=== PATIENT | female | born 1950 | race Asian ===

== ENCOUNTER 2019-07-19 00:44 | Inpatient (IN) | payer MEDICAID, MEDICARE ==
[~2019-07-19] VITALS: Ht 167.6 cm; Wt 89.8 kg
--- NOTE | 2019-07-19 00:45 | NUR ---
PT BIB RA WITH A C/O LEFT SIDED CP, RT SHOULDER PAIN, BUE WEAKNESS/"FATIGUE", SOB, COUGH WITH CONGESTION. 18G IV IN LT HAND REGIONAL PROGRAM MANAGER. IV IS PATENT AND BENIGN.
[2019-07-19 01:03] LABS: BASOPHILS % (AUTO) 0.5 % (0.0-2.0); EOSINOPHILS % (AUTO) 3.9 % (0.0-6.0); HEMATOCRIT 28 % (33-45); LYMPHOCYTES # (AUTO) 1.3 /CMM (0.8-4.8); LYMPHOCYTES % (AUTO) 12.3 % (20.0-44.0); MEAN CORPUSCULAR HGB CONC 33 g/dl (31.0-36.0); MEAN CORPUSCULAR VOLUME 91 fL (82-100); MONOCYTES # (AUTO) 0.7 /CMM (0.1-1.30); NEUTROPHILS # (AUTO) 7.8 /CMM (1.8-8.9); NEUTROPHILS % (AUTO) 76.3 % (43.0-81.0); PLATELET COUNT (AUTO) 216 /CMM (150-450); RED BLOOD CELL COUNT(AUTO) 3.03 MIL/uL (4.0-5.2); WHITE BLOOD COUNT (AUTO) 10.2 K/uL (4.3-11.0)
[2019-07-19] MEDS ORDERED: DILTIAZEM HCL 25 MG IV ONE (01:06)
[2019-07-19] MEDS ORDERED: MORPHINE SULFATE INJ 4 MG/ML DISP.SYRIN ONE (01:08)
[2019-07-19 01:12] LABS: CALCIUM, SERUM 8.4 mg/dL (8.5-10.1); CARBON DIOXIDE 26 mmol/L (21-32); CHLORIDE 109 mmol/L (98-107); CREATININE 1.8 mg/dL (0.6-1.3); GLUCOSE 204 mg/dL (74-106); SODIUM SERUM 144 mmol/L (136-145); UREA NITROGEN, BLOOD 55 mg/dL (7-18)
[2019-07-19 01:23] LABS: ALANINE AMINOTRANSFERASE 40 U/L (12-78); ALBUMIN 2.9 g/dL (3.4-5.0); ALKALINE PHOSPHATASE 69 U/L (46-116); ASPARTATE AMINOTRANSFERASE 13 U/L (15-37); B-TYPE NATRIURETIC PEPTIDE 4104 PG/ML (0-125); BILIRUBIN,DIRECT 0.1 mg/dL (0.0-0.2); BILIRUBIN,TOTAL 0.2 mg/dL (0.2-1.0); TOTAL PROTEIN, SERUM 6.3 g/dL (6.4-8.2)
--- NOTE | 2019-07-19 01:25 | NUR ---
PT HAS A POLST IN THE CHART. DNR WITH SELECTIVE TREATMENT
[2019-07-19] MEDS ORDERED: DILTIAZEM HCL 50 MG IV IV ONE (01:30)
[2019-07-19] MEDS ORDERED: MORPHINE SULFATE INJ 10 MG/ML DISP.SYRIN IV ONE (01:30)
[2019-07-19] MEDS ORDERED: ATOR20TA PO (01:45)
[2019-07-19] MEDS ORDERED: CARV25TA2 PO (01:45)
[2019-07-19] MEDS ORDERED: HYDR100T27 PO (01:45)
[2019-07-19] MEDS ORDERED: UMEC1BLS IH (01:45)
[2019-07-19] MEDS ORDERED: PROHEAL PO (01:45)
[2019-07-19] MEDS ORDERED: ASPI-1152 PO (01:45)
[2019-07-19] MEDS ORDERED: ACET-73 PO ×2 (01:45)
[2019-07-19] MEDS ORDERED: BISA10SU61 RC (01:45)
[2019-07-19] MEDS ORDERED: IPRA3AMP23 IH (01:45)
[2019-07-19] MEDS ORDERED: MAGN24002 PO (01:45)
[2019-07-19] MEDS ORDERED: ASPI1TAB2 PO (01:45)
[2019-07-19] MEDS ORDERED: PANT40TA4 PO (01:45)
[2019-07-19] MEDS ORDERED: SENN-261 PO (01:45)
[2019-07-19] MEDS ORDERED: GLYB5TAB7 PO (01:45)
[2019-07-19] MEDS ORDERED: INSU100I26 SQ (01:45)
[2019-07-19] MEDS ORDERED: ALBU8.5H8 IH (01:45)
[2019-07-19] MEDS ORDERED: NA P133E RC (01:45)
[2019-07-19] MEDS ORDERED: MULT-439 PO (01:45)
[2019-07-19] MEDS ORDERED: ISOS40TA12 PO (01:45)
--- NOTE | 2019-07-19 01:45 | NUR ---
PT APPEARS TO BE RESTING COMFORTABLY WITH NO S/S OF PAIN OR DISTRESS. WILL CONTINUE TO MONITOR THE PT.
--- NOTE | 2019-07-19 01:45 | NUR ---
EPIC PAGED PER ER ORDER.
--- NOTE | 2019-07-19 02:13 | NUR ---
CALLING REPORT TO TELE NURSE.
--- NOTE | 2019-07-19 02:16 | NUR ---
REPORT TO GREG HICKMAN
[2019-07-19] MEDS ORDERED: Z GUARD REMEDY 2 OZ OINT TP PRN (02:30)
[2019-07-19] MEDS ORDERED: MAGNESIUM HYDROXIDE 30 ML UDC PO PRN (02:30)
[2019-07-19] MEDS ORDERED: ENOXAPARIN SODIUM 80 MG/0.8 ML DISP.SYRIN SQ SCH ×2 (02:30→02:48)
[2019-07-19] MEDS ORDERED: NITROGLYCERIN 0.4 MG/TAB BOTTLE SL PRN (02:30)
[2019-07-19] MEDS ORDERED: ACETAMINOPHEN 325 MG TABLET PO PRN (02:30)
[2019-07-19] MEDS ORDERED: MAG HYDROX/AL HYDROX/SIMETH 30 ML UDC PO PRN (02:30)
[2019-07-19] MEDS ORDERED: CARVEDILOL 25 MG TABLET PO SCH (02:30)
[2019-07-19] MEDS ORDERED: ALBUTEROL SULFATE INH 18 GM HFA.AER.AD IH PRN (02:30)
[2019-07-19 02:36] VITALS: BP 128/65
--- NOTE | 2019-07-19 02:36 | NUR ---
YIELD ANALYST NOTES RECEIVED PATIENT FROM ER 0235. PATIENT ARRIVED UNIT ALERT AND ORIENTED X 3. PATIENT IS VERBALLY RESPONSIVE AND ABLE TO MAKE NEEDS KNOW. FULL CODE, NO ISOLATION WITH NKA. PATIENT DENIES ACUTE RESPIRATORY DISTRESS, NO ACUTE PAIN. IV ON L HAND 18G CLEAN DRY AND INTACT. NO SIGNS OF INFILTRATION, NO REDNESS. TELE MONITOR AFIB HR 140'S. ON NC 4L ON 98%. BELONGINGS CHECKLIST COMPLETED. SAFETY PRECAUTIONS IN PLACE. BED LOWEST POSITION, LOCKED, AND CALL LIGHT KEPT WITHIN REACH. WILL CONTINUE TO MONITOR.
--- NOTE | 2019-07-19 03:25 | NUR ---
NETBACKUP ADMINISTRATOR NOTES UNABLE TO ACCESS COREG DUE 0230 THROUGH [facility]. CONTACTED PHARMACY MULTIPLE TIMES, NO ONE PICKED UP. CHARGE NURSE IS AWARE AND INFORMED.
[2019-07-19] MEDS: ONDANSETRON HCL/PF 4 MG/2 ML VIAL IVP PRN ×2 (03:49→09:59)
[2019-07-19 04:00] VITALS: BP 128/65
[2019-07-19] MEDS: ISOSORBIDE DINITRATE (20MG) 20 MG TABLET PO SCH ×3 (04:14→21:00)
--- NOTE | 2019-07-19 05:08 | NUR ---
INFORMATION DELIVERY ANALYST NOTES TEXTED DR. HENDERSON REGARDING PATIENT HR OF 140'S ON 0425. ALSO PAGED DR. HENDERSON THROUGH [employer] AT 0508. AWAITING RESPONDS FOR ORDERS. WILL CONTINUE TO MONITOR.
[2019-07-19] MEDS ORDERED: CARVEDILOL 12.5 MG TABLET ONE (05:59)
--- NOTE | 2019-07-19 06:00 | NUR ---
SALVAGE MACHINE OPERATOR NOTES PATIENT GIVEN 15MG OF COREG FOR HR 138 AND BLOOD PRESSURE 128/65. WILL CONTINUE TO MONITOR.
[2019-07-19] MEDS: HYDROCODONE/APAP 5/325MG 1 EACH TABLET PO PRN ×2 (06:07→20:05)
--- NOTE | 2019-07-19 06:10 | NUR ---
AUTO BRAKE TECHNICIAN NOTES PATIENT COMPLAINED OF HEAD PAIN, 01/30. GIVEN NORCO AT 0605 PRN. WILL CONTINUE TO MONITOR.
--- NOTE | 2019-07-19 06:40 | NUR ---
BUSINESS SYSTEMS TECHNICIAN NOTES PER DR. HENDERSON ORDERED AMIODARONE DRIP AND TRANSFER PILI [id number].
--- NOTE | 2019-07-19 06:53 | NUR ---
GIS ANALYST NOTES REPORT GIVEN TO DONN GARZA DOU.
[2019-07-19] MEDS ORDERED: CARVEDILOL 12.5 MG TABLET PO SCH (07:08)
[2019-07-19] MEDS ORDERED: AMIODARONE 900 MG in IV D5W 482 ML IV PRN (07:30)
[2019-07-19] MEDS ORDERED: AMIODARONE 150 MG in IV D5W 100 ML IV ONE (07:30)
--- NOTE | 2019-07-19 07:30 | NUR ---
RN NOTE: Received patient in bed, seated upright on the edge of the bed. Patient was awake, alert and appeared fatigued. Respiration even and unlabored at this time. On O2 4L/min via NC saturating 95%. Denied any pain. But noted with discomfort when she lay down on her back. Afebrile. Skin warm to touch. Patient requested to keep her seated upright for the mean time. Bed alarmed and locked at all times. Bed on lowest position. youth nutritional monitor showed uncontrolled a. fib RVR HR= 121. Call light within reach. Needs anticipated.
[2019-07-19] MEDS ORDERED: ALBUTEROL FS 2.5 MG/0.5 ML VIAL.NEB NEB PRN (07:35)
[2019-07-19 08:00] VITALS: BP 117/74
--- NOTE | 2019-07-19 08:00 | NUR ---
RN NOTE: Amiodarone loading dose was started to the patient per MD order. On close monitoring on the monitoring coordinator regarding the heart rhythm change.
[2019-07-19] MEDS: PANTOPRAZOLE 40 MG TABLET.DR PO SCH (09:58)
[2019-07-19] MEDS: ASPIRIN EC 81 MG TABLET.DR PO SCH (09:58)
[2019-07-19] MEDS: hydrALAZINE HCL 50 MG TABLET PO SCH ×3 (10:00→16:02)
[2019-07-19] MEDS: glyBURIDE 5 MG TABLET PO SCH (10:00)
[2019-07-19 10:29] LABS: MAGNESIUM 1.8 mg/dL (1.8-2.4); PHOSPHORUS 4.1 mg/dL (2.5-4.9); THYROID STIMULATING HORMONE 9.514 uIU/mL (0.358-3.74)
[2019-07-19 12:00] VITALS: BP 115/73
--- NOTE | 2019-07-19 14:00 | NUR ---
RN NOTE: Patient converted to normal sinus rhythm @[address] Palma and Pamella Bailey NP made aware. Per Dr. Palma, ok to continue the Amiodarone drip per protocol.
[2019-07-19 16:00] VITALS: BP 100/55
--- NOTE | 2019-07-19 16:20 | NUR ---
RN NOTE: Spoke with the patient and she was lying on her back comfortably and she verbalized "I feel much better now." Patient was encouraged to eat and drink food, but she refused to eat and patient was given water per her request only.
[2019-07-19] MEDS ORDERED: DEXTROSE 50%-WATER 50 ML DISP.SYRIN IV PRN (16:30)
[2019-07-19] MEDS: BLOOD SUGAR DIAGNOSTIC 1 EACH STRIP IN SCH ×2 (16:59→22:43)
[2019-07-19] MEDS: INSULIN REGULAR, HUMAN 100 UNIT/ML 3 ML VIAL SQ PRN ×2 (17:44→22:58)
--- NOTE | 2019-07-19 19:05 | NUR ---
RN OPENING NOTES: PATIENT IN DEEP SLEEP BUT EASILY AROUSABLE. VERBALLY RESPONSIVE. AAOX4. NO RESPIRATORY DISTRESS. ON O2 AT 4LPM VIA NC, TOLERATING WELL. CONT. ON AMIO DRIP 0.5 MG/MIN. ON ROAD ROLLER ENGINEER NOW SINUS BRADYCARDIA, HR 56. SAFETY PRECAUTIONS IMPLEMENTED. BED LOCKED, ALARM ON, AND IN LOWEST POSITION. SIDE RAILS X 2 UP. ALL NEEDS WILL BE ATTENDED TO. CALL LIGHT PLACED WITHIN REACH. WILL CONT. TO MONITOR.
--- NOTE | 2019-07-19 19:20 | NUR ---
RN NOTE: Bedside report was given to PM shift nurse for continuity of care. patient remained asleep on the bed, resting comfortably, easily arousable with verbal cues. Amiodarone 0.5mg/min was still infusing with the patient. Emphasized to PM shift nurse to continue monitoring the patient's heart rate and rhythm.
[2019-07-19 20:00] VITALS: BP 106/52
[2019-07-19] MEDS: CARVEDILOL 12.5 MG TABLET PO SCH (21:00)
--- NOTE | 2019-07-19 21:00 | NUR ---
RN NOTE: COREG HELD DUE TO DECREASED BP AND HR. PATIENT IN STABLE CONDITION AT THIS TIME. WILL CONT. TO MONITOR.
[2019-07-19] MEDS: SENNOSIDES 8.6 MG TABLET PO SCH (21:22)
[2019-07-19] MEDS: ATORVASTATIN 10 MG TABLET PO SCH (21:22)
[2019-07-19] MEDS ORDERED: INSULIN GLARGINE,BASAGLAR 100 UNIT/ML INSULN.PEN SQ SCH (22:00)
[2019-07-19] MEDS: INSULIN GLARGINE, 100 UNIT/ML CARTRIDGE SQ SCH (22:56)
--- NOTE | 2019-07-19 23:04 | NUR ---
RN NOTE: PATIENT ON AMIO DRIP 0.5 MG/MIN X 18 HRS. PATIENT ON SYSTEM ADMINISTRATION MANAGER, SINUS BRADYCARDIA, HR SHOWING 48-52. DR. HENDERSON MADE AWARE WITH NEW ORDER TO DISCONTINUE AMIODARONE. ALSO MADE AWARE THAT PATIENT IS NOW DNR/DNI. POLST SIGNED BY PATIENT. PATIENT IN STABLE CONDITION AT THIS TIME. WILL CONT. TO MONITOR.
[2019-07-20] VITALS: BP 96/59
[2019-07-20] MEDS: ONDANSETRON HCL/PF 4 MG/2 ML VIAL IVP PRN (03:32)
[2019-07-20 04:00] VITALS: BP 115/64
[2019-07-20] MEDS: ISOSORBIDE DINITRATE (20MG) 20 MG TABLET PO SCH ×3 (05:04→20:45)
--- NOTE | 2019-07-20 07:00 | NUR ---
RN CLOSING NOTES: PATIENT ASLEEP BUT EASILY AROUSABLE. VERBALLY RESPONSIVE. AAOX4. NO RESPIRATORY DISTRESS. ON O2 AT 2LPM VIA NC, TOLERATING WELL. NO CHEST PAIN. ON BALLING MACHINE OPERATOR NOW SINUS BRADYCARDIA, HR 56. SAFETY PRECAUTIONS IMPLEMENTED. BED LOCKED, ALARM ON, AND IN LOWEST POSITION. SIDE RAILS X 2 UP. ALL NEEDS WILL BE ATTENDED TO. CALL LIGHT PLACED WITHIN REACH. URINE SPECIMEN STILL PENDING. ENDORSED TO AM SHIFT NURSE FOR CONTINUITY OF CARE.
[2019-07-20 07:56] LABS: BASOPHILS % (AUTO) 0.4 % (0.0-2.0); EOSINOPHILS % (AUTO) 2.9 % (0.0-6.0); HEMATOCRIT 31 % (33-45); HEMOGLOBIN 10.2 g/dL (11.5-14.8); LYMPHOCYTES % (AUTO) 10.8 % (20.0-44.0); MEAN CORPUSCULAR HGB CONC 32 g/dl (31.0-36.0); MEAN CORPUSCULAR VOLUME 93 fL (82-100); MONOCYTES # (AUTO) 0.6 /CMM (0.1-1.30); MONOCYTES % (AUTO) 6.6 % (2.0-12.0); NEUTROPHILS # (AUTO) 7.4 /CMM (1.8-8.9); NEUTROPHILS % (AUTO) 79.3 % (43.0-81.0); PLATELET COUNT (AUTO) 199 /CMM (150-450); WHITE BLOOD COUNT (AUTO) 9.4 K/uL (4.3-11.0)
[2019-07-20] MEDS: BLOOD SUGAR DIAGNOSTIC 1 EACH STRIP IN SCH ×4 (07:59→21:49)
[2019-07-20 08:00] VITALS: BP 145/75
--- NOTE | 2019-07-20 08:08 | NUR ---
received pt from restaurant shift supervisor, a/o x4, SB, on 2L 02 sat well, tolerates diet, diaper on, v/s stable, no chest pain verbalized, off of amio drip since last night, pt turns and repositions by herself.
[2019-07-20 08:10] LABS: CHOLESTEROL 100 mg/dL (<200); CREATINE KINASE, TOTAL 61 U/L (26-192); HDL CHOLESTEROL 45 mg/dL (40-60); LDL 44 mg/dL (0-99); THYROID STIMULATING HORMONE 6.557 uIU/mL (0.358-3.74); TRIGLYCERIDES 73 mg/dL (30-150)
[2019-07-20 08:17] LABS: ALANINE AMINOTRANSFERASE 38 U/L (12-78); ALBUMIN 3.1 g/dL (3.4-5.0); ALKALINE PHOSPHATASE 62 U/L (46-116); ASPARTATE AMINOTRANSFERASE 8 U/L (15-37); BILIRUBIN,TOTAL 0.3 mg/dL (0.2-1.0); CALCIUM, SERUM 8.6 mg/dL (8.5-10.1); CARBON DIOXIDE 25 mmol/L (21-32); CHLORIDE 109 mmol/L (98-107); CREATININE 2.6 mg/dL (0.6-1.3); GLUCOSE 109 mg/dL (74-106); MAGNESIUM 1.9 mg/dL (1.8-2.4); PHOSPHORUS 5.3 mg/dL (2.5-4.9); POTASSIUM 4.7 mmol/L (3.5-5.1); SODIUM SERUM 144 mmol/L (136-145); TOTAL PROTEIN, SERUM 6.8 g/dL (6.4-8.2); UREA NITROGEN, BLOOD 69 mg/dL (7-18)
[2019-07-20] MEDS: glyBURIDE 5 MG TABLET PO SCH (08:40)
[2019-07-20] MEDS: CARVEDILOL 12.5 MG TABLET PO SCH ×2 (08:41→20:46)
[2019-07-20] MEDS: hydrALAZINE HCL 50 MG TABLET PO SCH ×3 (08:41→16:41)
[2019-07-20] MEDS: ASPIRIN EC 81 MG TABLET.DR PO SCH (08:42)
[2019-07-20] MEDS: PANTOPRAZOLE 40 MG TABLET.DR PO SCH (08:42)
[2019-07-20] MEDS ORDERED: APIXABAN 2.5 MG TABLET PO SCH (10:00)
[2019-07-20] MEDS: AMIODARONE HCL 200 MG TABLET PO SCH ×2 (10:03→16:41)
[2019-07-20 16:00] VITALS: BP 166/85
--- NOTE | 2019-07-20 16:28 | NUR ---
pt is resting in the bed, a/o x4, SR, SB, tolerates feeding, f/c good output, v/s stable, no pain, pt cleaned and changed.
[2019-07-20] MEDS: APIXABAN 2.5 MG TABLET PO SCH (16:43)
[2019-07-20 16:52] LABS: APPEARANCE,URINE CLEAR (CLEAR); BILIRUBIN,URINE NEGATIVE (NEGATIVE); BLOOD, URINE NEGATIVE Ery/uL (NEGATIVE); COLOR,URINE YELLOW (YELLOW); KETONES,URINE NEGATIVE (NEGATIVE); LEUKOCYTE ESTERASE ,URINE NEGATIVE (NEGATIVE); NITRITE, URINE POSITIVE (NEGATIVE); PROTEIN,URINE 100 mg/dl (NEGATIVE); UGLUCOSE NEGATIVE (NEGATIVE); UROBILINOGEN,URINE 0.2 EU/dL (0.2)
[2019-07-20 17:23] LABS: CREATININE, URINE 106.8 MG/DL (30.0-125.0); URINE TOTAL PROTEIN 104.5 mg/dL (0-11.9)
[2019-07-20 17:33] LABS: BACTERIA,URINE 4+ /HPF (None Seen); RBC,URINE 0-2 /HPF (0-2); SQUAMOUS EPITHELIAL CELL,UR 0-2 /HPF (None Seen)
[2019-07-20 17:50] LABS: EOSINOPHIL,URINE None Seen
--- NOTE | 2019-07-20 19:30 | NUR ---
MS1 RN NOTES RECEIVED ON BED SLEEPING,AROUSABLE TO VERBAL STIMULI,BREATHING NON LABORED,O2 IN USED AT 2L/NC TO KEEP O2 SAT ABOVE 90%,94% AT THE MOMENT.SALINE LOCK RIGHT UPPER ARM INTACT AND PATENT.ODELL CATH IN PLACE DRAINING YELLOWISH OUTPUT.APPEARS WEAK,FALL PRECAUTION OBSERVED.BED ON LOWEST POSITION AND LOCKED.ENCOURAGED TO CALL FOR ASSISTANCE AT ALL TIMES.CALL LIGHT IN REACH,NEEDS ANTICIPATED.
[2019-07-20 20:00] VITALS: BP 164/81
[2019-07-20] MEDS: ATORVASTATIN 10 MG TABLET PO SCH (21:50)
[2019-07-20] MEDS: SENNOSIDES 8.6 MG TABLET PO SCH (21:50)
[2019-07-20] MEDS: INSULIN GLARGINE, 100 UNIT/ML CARTRIDGE SQ SCH (21:56)
--- NOTE | 2019-07-20 22:00 | NUR ---
MS1 RN NOTES ACCU-CHECK BLOOD SUGAR CHECK 84,NO INSULIN COVERAGE.LANTUS 20 UNITS HELD FOR LOW BLOOD SUGAR
--- NOTE | 2019-07-21 01:00 | NUR ---
MS1 RN NOTES SLEEPING,KEPT WARM AND COMFORTABLE
[2019-07-21 04:00] VITALS: BP 127/67
[2019-07-21] MEDS: ISOSORBIDE DINITRATE (20MG) 20 MG TABLET PO SCH ×3 (05:05→21:42)
[2019-07-21] MEDS: MORPHINE SULFATE INJ 2 MG/ML DISP.SYRIN IV PRN ×2 (05:58→21:38)
--- NOTE | 2019-07-21 05:58 | NUR ---
MS1 RN NOTES C/O CHEST PAIN,MEDICATED WITH MORPHINE 2MG IV ORDERED.EKG THIS MORNING NSR,BP 127/67
--- NOTE | 2019-07-21 06:10 | NUR ---
MS1 RN NOTES FAIRLY RESTED AT NIGHT,VERBALIZED WEAKNESS AND NO APPETITE TO EAT.SALINE LOCK RIGHT ARM INTACT AND PATENT.WITH GENERALIZED EDEMA,BREATHING NON LABORED.BLOOD PRESSURE MEDICATION EFFECTIVE.LATEST READING WAS 127/67.DNR/DNI STATUS.CALL LIGHT IN REACH,NEEDS ATTENDED.
[2019-07-21 06:52] LABS: BASOPHILS % (AUTO) 0.3 % (0.0-2.0); EOSINOPHILS % (AUTO) 5.2 % (0.0-6.0); HEMATOCRIT 28 % (33-45); HEMOGLOBIN 9.1 g/dL (11.5-14.8); LYMPHOCYTES # (AUTO) 0.9 /CMM (0.8-4.8); LYMPHOCYTES % (AUTO) 10.6 % (20.0-44.0); MEAN CORPUSCULAR HGB CONC 33 g/dl (31.0-36.0); MEAN CORPUSCULAR VOLUME 91 fL (82-100); MONOCYTES # (AUTO) 0.6 /CMM (0.1-1.30); MONOCYTES % (AUTO) 7.5 % (2.0-12.0); NEUTROPHILS # (AUTO) 6.2 /CMM (1.8-8.9); NEUTROPHILS % (AUTO) 76.4 % (43.0-81.0); PLATELET COUNT (AUTO) 182 /CMM (150-450); RED BLOOD CELL COUNT(AUTO) 3.04 MIL/uL (4.0-5.2); WHITE BLOOD COUNT (AUTO) 8.2 K/uL (4.3-11.0)
[2019-07-21 07:25] LABS: ALANINE AMINOTRANSFERASE 26 U/L (12-78); ALBUMIN 2.7 g/dL (3.4-5.0); ALKALINE PHOSPHATASE 59 U/L (46-116); ASPARTATE AMINOTRANSFERASE 10 U/L (15-37); BILIRUBIN,TOTAL 0.3 mg/dL (0.2-1.0); CALCIUM, SERUM 8.5 mg/dL (8.5-10.1); CARBON DIOXIDE 26 mmol/L (21-32); CHLORIDE 110 mmol/L (98-107); CREATININE 1.8 mg/dL (0.6-1.3); GLUCOSE 72 mg/dL (74-106); MAGNESIUM 1.8 mg/dL (1.8-2.4); PHOSPHORUS 3.7 mg/dL (2.5-4.9); POTASSIUM 4.4 mmol/L (3.5-5.1); SODIUM SERUM 145 mmol/L (136-145); TOTAL PROTEIN, SERUM 6.1 g/dL (6.4-8.2); UREA NITROGEN, BLOOD 57 mg/dL (7-18)
[2019-07-21] MEDS: BLOOD SUGAR DIAGNOSTIC 1 EACH STRIP IN SCH ×4 (07:41→21:49)
--- NOTE | 2019-07-21 07:42 | NUR ---
MS RN NOTES RECEIVED PATIENT IN BED SLEEPING, ABLE TO AROUSE WHEN NAME CALLED. ON 2 L O2 94%. CALL LIGHT WITHIN REACH BED LOCKED IN LOWEST POSITION. WILL CONTINUE TO MONITOR.
--- NOTE | 2019-07-21 07:43 | NUR ---
MS RN NOTES PATIENT BLOOD GLUCOSE LEVEL 72MG/DL NO INSULIN GIVEN.
[2019-07-21 08:00] VITALS: BP 124/58
--- NOTE | 2019-07-21 08:41 | NUR ---
MS RN NOTES PATIENT IS REFUSING TO EAT SHE STATED THAT SHE IS NAUSEATED. ZOFRAN WILL BE PROVIDED.
[2019-07-21] MEDS: ONDANSETRON HCL/PF 4 MG/2 ML VIAL IVP PRN (08:42)
[2019-07-21] MEDS: glyBURIDE 5 MG TABLET PO SCH (09:00)
--- NOTE | 2019-07-21 09:57 | NUR ---
MS RN NOTES GLYBURIDE NOT GIVEN PATIENT`S BLOOD SUGAR 72 AND SHE IS REFUSING TO EAT. ORANGE JUICE PROVIDED.
[2019-07-21] MEDS: PANTOPRAZOLE 40 MG TABLET.DR PO SCH (10:02)
[2019-07-21] MEDS: CARVEDILOL 12.5 MG TABLET PO SCH ×2 (10:02→21:43)
[2019-07-21] MEDS: ASPIRIN EC 81 MG TABLET.DR PO SCH (10:03)
[2019-07-21] MEDS: hydrALAZINE HCL 50 MG TABLET PO SCH ×3 (10:04→16:09)
[2019-07-21] MEDS: AMIODARONE HCL 200 MG TABLET PO SCH ×2 (10:05→16:09)
[2019-07-21] MEDS: APIXABAN 2.5 MG TABLET PO SCH ×2 (10:06→16:10)
--- NOTE | 2019-07-21 12:03 | NUR ---
MS RN NOTES BLOOD SUGAR 110 MG/DL NO INSULIN GIVEN.
[2019-07-21] MEDS: SOD FERRIC GLUC 125 MG in IV NS 0.9% 100 ML IV SCH (14:17)
[2019-07-21] MEDS ORDERED: MAGNESIUM HYDROXIDE 30 ML UDC PO PRN (14:30)
[2019-07-21] MEDS ORDERED: BISACODYL SUPP (10 MG) 10 MG/SUPP.RECT SUPP.RECT RC PRN (14:30)
[2019-07-21 16:00] VITALS: BP 129/62
[2019-07-21] MEDS: DOCUSATE SODIUM 250 MG CAPSULE PO SCH (16:09)
[2019-07-21] MEDS: CEPHALEXIN MONOHYDRATE 500 MG CAPSULE PO SCH (16:09)
--- NOTE | 2019-07-21 17:51 | NUR ---
MS RN NOTES BLOOD GLUCOSE [id number]/DL NO INSULIN GIVEN.
--- NOTE | 2019-07-21 19:35 | NUR ---
MS RN NOTES, RECEIVED PATIENT IN BED AWAKE, A/O X4 ABLE TO VERBALIZED NEEDS AND CONCERNS, BREATHING EVEN AND UNLABORED, NO SOB/ACUTE DISTRESS NOTED AT THIS TIME, ON 2 L O2 WITH OPTIMAL SATURATION LEVEL, ALL NEEDS PROVIDED, SAFETY MEASURES IN PLACED, CALL LIGHT WITHIN REACH BED LOCKED IN LOWEST POSITION, WILL CONTINUE TO MONITOR CLOSELY.
[2019-07-21 20:00] VITALS: BP 143/65
--- NOTE | 2019-07-21 20:02 | NUR ---
MS RN NOTES PATIENT IN BED SITTING, A/OX4. ABLE TO INCREASE INTAKE AMOUNT. STILL COMPLAINS OF WEAKNESS. NO PAIN REPORTED. NO SOB NOTED. RIGHT HAND IV PATENT AND FLUSHED WITH NS. ALL NEEDS ATTENDED MEDICATION GIVEN. NO MAJOR CHANGES DURING SHIFT. BED AT THE LOWEST POSITION AND LOCKED, CALL LIGHT WITHIN REACH. ENDORSED TO ENTRY REP NURSE FOR BETY.
[2019-07-21] MEDS: SENNOSIDES 8.6 MG TABLET PO SCH (21:42)
[2019-07-21] MEDS: ATORVASTATIN 10 MG TABLET PO SCH (21:42)
[2019-07-21] MEDS: INSULIN REGULAR, HUMAN 100 UNIT/ML 3 ML VIAL SQ PRN (21:51)
[2019-07-21] MEDS: INSULIN GLARGINE, 100 UNIT/ML CARTRIDGE SQ SCH (21:53)
[2019-07-22] VITALS: BP 167/74
[2019-07-22] MEDS: HYDROCODONE/APAP 5/325MG 1 EACH TABLET PO PRN ×3 (01:13→16:05)
[2019-07-22] MEDS: ONDANSETRON HCL/PF 4 MG/2 ML VIAL IVP PRN ×2 (03:22→09:56)
[2019-07-22 04:00] VITALS: BP 167/74
--- NOTE | 2019-07-22 04:30 | NUR ---
RN NOTES, NOTED BP 170/72, WITH LOWER 166/91, AND HIGHEST 200/99, ISOSORBIDE SCHEDULED AT THIS TIME, AND ADMINISTERED, AND PAGED DR HENDERSON AUTOMATIC BRINE MIXER OPERATOR, AWAITING FOR CALL BACK.
[2019-07-22] MEDS: ISOSORBIDE DINITRATE (20MG) 20 MG TABLET PO SCH ×3 (05:18→20:54)
[2019-07-22 06:00] VITALS: BP 152/72
--- NOTE | 2019-07-22 06:10 | NUR ---
RN NOTES, DR JAIMES RETURNED CALL, INFORMED THAT AFTER THE ADM OF ISOSORBIDE DINITRATE, AND RECHECKED OF BLOOD PRESSURE, BLOOD PRESSURE 152/72, FIONA WITH NNO.
[2019-07-22 06:17] LABS: BASOPHILS % (AUTO) 0.4 % (0.0-2.0); EOSINOPHILS % (AUTO) 4.1 % (0.0-6.0); HEMATOCRIT 29 % (33-45); HEMOGLOBIN 9.4 g/dL (11.5-14.8); LYMPHOCYTES # (AUTO) 0.8 /CMM (0.8-4.8); LYMPHOCYTES % (AUTO) 9.8 % (20.0-44.0); MEAN CORPUSCULAR HGB CONC 33 g/dl (31.0-36.0); MEAN CORPUSCULAR VOLUME 91 fL (82-100); MONOCYTES # (AUTO) 0.7 /CMM (0.1-1.30); NEUTROPHILS # (AUTO) 6.1 /CMM (1.8-8.9); NEUTROPHILS % (AUTO) 76.7 % (43.0-81.0); PLATELET COUNT (AUTO) 168 /CMM (150-450); RED BLOOD CELL COUNT(AUTO) 3.15 MIL/uL (4.0-5.2)
--- NOTE | 2019-07-22 06:54 | NUR ---
MS RN NOTES, PATIENT IN BED ASLEEP BUT AROUSES TO VERBAL STIMULI, BREATHING EVEN AND UNLABORED, NO SOB/ACUTE DISTRESS NOTED AT THIS TIME, ON 2 L O2 WITH OPTIMAL SATURATION LEVEL, ALL NEEDS PROVIDED, NO SIGNIFICANT CHANGE IN CONDITION DURING THE NIGHT, ALL SAFETY MEASURES IN PLACED, CALL LIGHT WITHIN REACH BED LOCKED IN LOWEST POSITION, WILL ENDORSE CONTINUITY OF CARE TO ONCOMING NURSE.
[2019-07-22 06:59] LABS: ALANINE AMINOTRANSFERASE 29 U/L (12-78); ALBUMIN 2.8 g/dL (3.4-5.0); ALKALINE PHOSPHATASE 67 U/L (46-116); ASPARTATE AMINOTRANSFERASE 12 U/L (15-37); BILIRUBIN,TOTAL 0.4 mg/dL (0.2-1.0); CALCIUM, SERUM 8.5 mg/dL (8.5-10.1); CARBON DIOXIDE 27 mmol/L (21-32); CHLORIDE 108 mmol/L (98-107); CREATININE 1.6 mg/dL (0.6-1.3); GLUCOSE 127 mg/dL (74-106); MAGNESIUM 1.9 mg/dL (1.8-2.4); PHOSPHORUS 3.4 mg/dL (2.5-4.9); SODIUM SERUM 142 mmol/L (136-145); TOTAL PROTEIN, SERUM 6.7 g/dL (6.4-8.2); UREA NITROGEN, BLOOD 48 mg/dL (7-18)
--- NOTE | 2019-07-22 07:10 | NUR ---
MS RN OPENING NOTE RECEIVED PATIENT IN BED AWAKE, A/O X4 ABLE TO VERBALIZE NEEDS AND CONCERNS. BREATHING EVEN AND UNLABORED, ON CONT. 02 @2LPM VIA NC AND TOLERATING WELL. NO SOB/ACUTE DISTRESS NOTED AT THIS TIME. IV SITE ON THE RFA PATENT, INTACT AND CLEAN AND ON SALINE LOCK. GENERALIZED PAIN STILL NOTED, WILL ADMINISTER PAIN MEDICATION AVAILABLE WHEN DUE. NEEDS ANTICIPATED. SAFETY MEASURES IN PLACE. CALL LIGHT WITHIN REACH, BED LOCKED IN LOWEST POSITION AND AT SEMI-BOYER'S. WILL CONTINUE TO MONITOR CLOSELY
[2019-07-22 08:00] VITALS: BP 153/71
[2019-07-22] MEDS: INSULIN REGULAR, HUMAN 100 UNIT/ML 3 ML VIAL SQ PRN ×3 (08:34→21:04)
[2019-07-22] MEDS: BLOOD SUGAR DIAGNOSTIC 1 EACH STRIP IN SCH ×4 (08:34→21:04)
[2019-07-22] MEDS: hydrALAZINE HCL 50 MG TABLET PO SCH ×3 (08:44→16:07)
[2019-07-22] MEDS: CARVEDILOL 12.5 MG TABLET PO SCH ×2 (08:45→21:00)
[2019-07-22] MEDS: glyBURIDE 5 MG TABLET PO SCH (08:46)
[2019-07-22] MEDS: AMIODARONE HCL 200 MG TABLET PO SCH ×2 (08:46→16:06)
[2019-07-22] MEDS: CEPHALEXIN MONOHYDRATE 500 MG CAPSULE PO SCH ×2 (08:46→16:05)
[2019-07-22] MEDS: PANTOPRAZOLE 40 MG TABLET.DR PO SCH (08:47)
[2019-07-22] MEDS: ASPIRIN EC 81 MG TABLET.DR PO SCH (08:49)
[2019-07-22] MEDS: APIXABAN 2.5 MG TABLET PO SCH ×2 (08:50→16:08)
[2019-07-22] MEDS: DOCUSATE SODIUM 250 MG CAPSULE PO SCH ×2 (08:51→16:05)
[2019-07-22] MEDS ORDERED: FUROSEMIDE 40 MG/4 ML VIAL IV SCH (12:00)
[2019-07-22] MEDS: SOD FERRIC GLUC 125 MG in IV NS 0.9% 100 ML IV SCH (15:08)
[2019-07-22 15:59] LABS: OCCULT BLOOD STOOL NEGATIVE (NEGATIVE)
[2019-07-22 16:00] VITALS: BP 125/54
[2019-07-22 16:11] LABS: *SPE A/G RATIO 0.9 (0.7-1.7); *SPE ALBUMIN 2.9 g/dL (2.9-4.4); *SPE ALPHA-1-GLOBULIN 0.2 g/dL (0.0-0.4); *SPE ALPHA-2-GLOBULIN 0.8 g/dL (0.4-1.0); *SPE BETA GLOBULIN 1.1 g/dL (0.7-1.3); *SPE GLOBULIN, TOTAL 3.3 g/dL (2.2-3.9); *SPE M-SPIKE 0.2 g/dL (Not Observed); *SPEGAMMA GLOBULIN 1.2 g/dL (0.4-1.8)
--- NOTE | 2019-07-22 19:25 | NUR ---
MS RN CLOSING NOTE PATIENT IN BED AWAKE AND SITTING AT THE EDGE OF THE BED. A/O X4 ABLE TO VERBALIZE NEEDS AND CONCERNS. 02 @2LPM VIA NC AND TOLERATING WELL, NO SOB/ACUTE DISTRESS NOTED AT THIS TIME. IV SITE ON THE RFA PATENT, INTACT AND CLEAN AND ON SALINE LOCK. GENERALIZED PAIN STILL REPORTED. PAIN MANAGEMENT DONE ON SHIFT WITH A SMALL DEGREE OF RELIEF REPORTED BY PATIENT. RADIOLOGY WAS CALLED IN EARLIER ON THE SHIFT TO CLARIFY THE RESULTS OF DUPLEX VENOUS UPPER EXTREMITY LEFT IMAGING THAT WAS DONE FOR THE PATIENT, STAFF NEEDED TO CLARIFY WITH PERSON WHO DID THE PROCEDURE AND BEENA MADRID WAS INFORMED OF THE CONVERSATION. CALL LIGHT WITHIN REACH, BED LOCKED IN LOWEST POSITION AND AT SEMI-BOYER'S. ENDORSED TO ONCOMING SHIFT FOR BETY.
--- NOTE | 2019-07-22 19:30 | NUR ---
MS RN NOTES, RECEIVED PATIENT IN BED AWAKE, A/O X4 ABLE TO VERBALIZED NEEDS AND CONCERNS, BREATHING EVEN AND UNLABORED, NO SOB/ACUTE DISTRESS NOTED AT THIS TIME, ON 2 L O2 WITH OPTIMAL SATURATION LEVEL, ALL NEEDS PROVIDED, SAFETY MEASURES IN PLACED, WILL HAVE STRESS TEST TOMORROW, EDUCATION AND EXPECTATIONS PROVIDED TO PATIENT, AND SHE VERBALIZED UNDERSTANDING, BILATERAL S/R OF BED UP, CALL LIGHT WITHIN REACH BED LOCKED IN LOWEST POSITION, WILL CONTINUE TO MONITOR CLOSELY.
[2019-07-22 20:00] VITALS: BP 156/68
[2019-07-22] MEDS: SENNOSIDES 8.6 MG TABLET PO SCH (21:04)
[2019-07-22] MEDS: ATORVASTATIN 10 MG TABLET PO SCH (21:04)
[2019-07-22] MEDS: INSULIN GLARGINE, 100 UNIT/ML CARTRIDGE SQ SCH (21:08)
[2019-07-22] MEDS: ZOLPIDEM TARTRATE 5 MG TABLET PO PRN (21:08)
--- NOTE | 2019-07-22 21:30 | NUR ---
RN NOTES, CARVEDILOL NOT ADMINISTERED DUE TO HR 59 AT THIS TIME, BP 156/68, ROUTINE ISOSORBIDE ADMINISTERED, WILL CONTINUE TO MONITOR CLOSELY.
--- NOTE | 2019-07-23 02:15 | NUR ---
RN NOTES, ENDORSED PATIENT TO GREG STATON FOR CONTINUATION OF CARE, PATIENT SLEEPING COMFORTABLY IN BED, NO SOB/ACUTE DISTRESS NOTED.
--- NOTE | 2019-07-23 02:20 | NUR ---
RN NOTES, RECEIVED PATIENT FROM ERIKA GARZA IN BED AT 0215. PATIENT AWAKE, A/O X4 ABLE TO VERBALIZED NEEDS AND CONCERNS, BREATHING EVEN AND UNLABORED, NO SOB/ACUTE DISTRESS NOTED AT THIS TIME, ON 2 L O2 WITH OPTIMAL SATURATION LEVEL, ALL NEEDS PROVIDED, SAFETY MEASURES IN PLACED, WILL HAVE STRESS TEST TOMORROW, EDUCATION AND EXPECTATIONS PROVIDED TO PATIENT, AND SHE VERBALIZED UNDERSTANDING, BILATERAL S/R OF BED UP, CALL LIGHT WITHIN REACH BED LOCKED IN LOWEST POSITION, WILL CONTINUE TO MONITOR CLOSELY.
[2019-07-23 04:00] VITALS: BP 161/60
[2019-07-23] MEDS: ISOSORBIDE DINITRATE (20MG) 20 MG TABLET PO SCH ×3 (05:24→21:33)
[2019-07-23 06:17] LABS: BASOPHILS % (AUTO) 0.6 % (0.0-2.0); EOSINOPHILS % (AUTO) 9.6 % (0.0-6.0); HEMATOCRIT 28 % (33-45); HEMOGLOBIN 9.5 g/dL (11.5-14.8); LYMPHOCYTES # (AUTO) 0.6 /CMM (0.8-4.8); LYMPHOCYTES % (AUTO) 10.7 % (20.0-44.0); MEAN CORPUSCULAR HGB CONC 34 g/dl (31.0-36.0); MEAN CORPUSCULAR VOLUME 90 fL (82-100); MONOCYTES # (AUTO) 0.7 /CMM (0.1-1.30); MONOCYTES % (AUTO) 12.3 % (2.0-12.0); NEUTROPHILS # (AUTO) 3.6 /CMM (1.8-8.9); NEUTROPHILS % (AUTO) 66.8 % (43.0-81.0); PLATELET COUNT (AUTO) 191 /CMM (150-450); RED BLOOD CELL COUNT(AUTO) 3.16 MIL/uL (4.0-5.2); WHITE BLOOD COUNT (AUTO) 5.4 K/uL (4.3-11.0)
--- NOTE | 2019-07-23 06:26 | NUR ---
MS RN CLOSING NOTES, PATIENT IN BED AWAKE, A/O X4 ABLE TO VERBALIZED NEEDS AND CONCERNS, BREATHING EVEN AND UNLABORED, NO SOB/ACUTE DISTRESS NOTED AT THIS TIME, ON 2 L O2 WITH OPTIMAL SATURATION LEVEL, PATIENT WILL HAVE STRESS TEST THIS MORNING, EDUCATION AND EXPECTATIONS PROVIDED TO PATIENT, AND SHE VERBALIZED UNDERSTANDING, ALL NEEDS PROVIDED, SAFETY MEASURES IN PLACED, CALL LIGHT WITHIN REACH BED LOCKED IN LOWEST POSITION, WILL ENDORSE THE PATIENT TO AM RN FOR BETY.
[2019-07-23 06:27] LABS: CARBON DIOXIDE 31 mmol/L (21-32); CHLORIDE 107 mmol/L (98-107); CREATININE 1.5 mg/dL (0.6-1.3); GLUCOSE 56 mg/dL (74-106); MAGNESIUM 1.7 mg/dL (1.8-2.4); PHOSPHORUS 3.2 mg/dL (2.5-4.9); POTASSIUM 4.3 mmol/L (3.5-5.1); SODIUM SERUM 143 mmol/L (136-145); UREA NITROGEN, BLOOD 40 mg/dL (7-18)
--- NOTE | 2019-07-23 07:25 | NUR ---
MS RN OPENING NOTE RECEIVED PATIENT IN BED AWAKE, A/O X4 ABLE TO VERBALIZE NEEDS AND CONCERNS. BREATHING EVEN AND UNLABORED, ON CONT. 02 @2LPM VIA NC AND TOLERATING WELL. NO SOB/ACUTE DISTRESS NOTED AT THIS TIME. IV SITE ON THE RFA PATENT, INTACT AND CLEAN AND ON SALINE LOCK. GENERALIZED PAIN STILL NOTED, WILL ADMINISTER PAIN MEDICATION AVAILABLE WHEN DUE. CURRENTLY ON NPO FOR STRESS TEST @ AM SCHEDULED TODAY. NEEDS ANTICIPATED. SAFETY MEASURES IN PLACE. CALL LIGHT WITHIN REACH, BED LOCKED IN LOWEST POSITION AND AT SEMI-BOYER'S. WILL CONTINUE TO MONITOR CLOSELY
[2019-07-23] MEDS: BLOOD SUGAR DIAGNOSTIC 1 EACH STRIP IN SCH ×4 (07:30→22:04)
[2019-07-23 08:00] VITALS: BP 161/64
[2019-07-23] MEDS ORDERED: REGADENOSON 0.4 MG/5 ML DISP.SYRIN IVP ONE (08:00)
[2019-07-23] MEDS ORDERED: Magnesium 1GM/D5W 100ML PREMIX 100 ML IV SCH (09:30)
[2019-07-23] MEDS: PANTOPRAZOLE 40 MG TABLET.DR PO SCH (10:15)
[2019-07-23] MEDS: CARVEDILOL 12.5 MG TABLET PO SCH ×2 (10:15→21:33)
[2019-07-23] MEDS: AMIODARONE HCL 200 MG TABLET PO SCH ×2 (10:16→17:41)
[2019-07-23] MEDS: ASPIRIN EC 81 MG TABLET.DR PO SCH (10:16)
[2019-07-23] MEDS: hydrALAZINE HCL 50 MG TABLET PO SCH ×3 (10:16→17:42)
[2019-07-23] MEDS: DOCUSATE SODIUM 250 MG CAPSULE PO SCH ×2 (10:16→17:42)
[2019-07-23] MEDS: HYDROCODONE/APAP 5/325MG 1 EACH TABLET PO PRN ×3 (10:17→23:27)
[2019-07-23] MEDS: FUROSEMIDE 40 MG TABLET PO SCH (10:19)
[2019-07-23] MEDS: CEPHALEXIN MONOHYDRATE 500 MG CAPSULE PO SCH ×2 (10:20→17:43)
[2019-07-23] MEDS: APIXABAN 2.5 MG TABLET PO SCH ×2 (10:23→17:47)
[2019-07-23] MEDS: glyBURIDE 5 MG TABLET PO SCH (10:24)
[2019-07-23] MEDS ORDERED: PIPERACILLIN /TAZOBACTAM 3.375 G in IV D5W 50 ML IV SCH (12:00)
--- NOTE | 2019-07-23 13:00 | NUR ---
RN NOTE: PATIENT TRANSFERRED TO ROOM 106 DUE TO SUICIDAL IDEATION IDENTIFIED BY DR. JULIA BOLANOS UPON ROUNDING. WILL ASSESS AND MONITOR CLOSELY.
[2019-07-23 16:00] VITALS: BP_SYST 118; BP_SYST 123; BP_DIAS 52; BP_DIAS 62
[2019-07-23] MEDS: ONDANSETRON HCL/PF 4 MG/2 ML VIAL IVP PRN (16:33)
[2019-07-23] MEDS: SOD FERRIC GLUC 125 MG in IV NS 0.9% 100 ML IV SCH (17:11)
--- NOTE | 2019-07-23 19:40 | NUR ---
MS RN CLOSING NOTE PATIENT IN BED AWAKE AND SITTING AT THE EDGE OF THE BED. A/O X4 ABLE TO VERBALIZE NEEDS AND CONCERNS. 02 @2LPM VIA NC AND TOLERATING WELL, NO SOB/ACUTE DISTRESS NOTED AT THIS TIME. IV SITE ON THE RFA PATENT, INTACT AND CLEAN AND ON SALINE LOCK. GENERALIZED PAIN STILL REPORTED. PAIN AND NAUSEA MANAGEMENT DONE ON SHIFT WITH A SMALL DEGREE OF RELIEF REPORTED BY PATIENT. PATIENT WAS CLOSELY MONITORED ON SHIFT AND SAFETY ENSURED AND OBSERVED FOR SUICIDAL IDEATIONS AND ACTIONS. CALL LIGHT WITHIN REACH, BED LOCKED IN LOWEST POSITION AND AT SEMI-BOYER'S. ENDORSED TO IMPORT COORDINATOR FOR BETY.
[2019-07-23 20:00] VITALS: BP 133/57
[2019-07-23] MEDS: ATORVASTATIN 10 MG TABLET PO SCH (21:33)
[2019-07-23] MEDS: SENNOSIDES 8.6 MG TABLET PO SCH (21:34)
[2019-07-23] MEDS: ZOLPIDEM TARTRATE 5 MG TABLET PO PRN (21:56)
[2019-07-23] MEDS: INSULIN GLARGINE, 100 UNIT/ML CARTRIDGE SQ SCH (22:14)
[2019-07-24] MEDS: HYDROCODONE/APAP 5/325MG 1 EACH TABLET PO PRN (03:22)
[2019-07-24 04:00] VITALS: BP 139/76
[2019-07-24] MEDS: ISOSORBIDE DINITRATE (20MG) 20 MG TABLET PO SCH ×2 (04:15→12:34)
[2019-07-24] MEDS: ONDANSETRON HCL/PF 4 MG/2 ML VIAL IVP PRN (05:37)
[2019-07-24 06:38] LABS: CALCIUM, SERUM 8.5 mg/dL (8.5-10.1); CARBON DIOXIDE 31 mmol/L (21-32); CHLORIDE 105 mmol/L (98-107); CREATININE 1.6 mg/dL (0.6-1.3); GLUCOSE 51 mg/dL (74-106); MAGNESIUM 1.8 mg/dL (1.8-2.4); PHOSPHORUS 3.5 mg/dL (2.5-4.9); SODIUM SERUM 144 mmol/L (136-145); UREA NITROGEN, BLOOD 36 mg/dL (7-18)
[2019-07-24 07:12] LABS: BASOPHILS % (AUTO) 0.6 % (0.0-2.0); HEMATOCRIT 28 % (33-45); HEMOGLOBIN 9.2 g/dL (11.5-14.8); LYMPHOCYTES # (AUTO) 0.8 /CMM (0.8-4.8); LYMPHOCYTES % (AUTO) 12.9 % (20.0-44.0); MEAN CORPUSCULAR HGB CONC 33 g/dl (31.0-36.0); MEAN CORPUSCULAR VOLUME 92 fL (82-100); MONOCYTES # (AUTO) 0.8 /CMM (0.1-1.30); MONOCYTES % (AUTO) 12.2 % (2.0-12.0); NEUTROPHILS % (AUTO) 65.3 % (43.0-81.0); PLATELET COUNT (AUTO) 203 /CMM (150-450); RED BLOOD CELL COUNT(AUTO) 3.06 MIL/uL (4.0-5.2); WHITE BLOOD COUNT (AUTO) 6.2 K/uL (4.3-11.0)
--- NOTE | 2019-07-24 07:23 | NUR ---
MS RN OPENING NOTE RECEIVED PATIENT IN BED AWAKE, A/O X4. ABLE TO VERBALIZE NEEDS AND CONCERNS. ON CONT. 02 @2LPM VIA NC AND TOLERATING WELL. NO SIGNS OF DISTRESS NOTED AT THIS TIME. IV SITE ON THE RFA PATENT, INTACT AND CLEAN AND ON SALINE LOCK. NOTED WITH ODELL CATHETER, DRAINING WITH CLEAR, YELLOW URINE. SAFETY MEASURES IN PLACE. CALL LIGHT WITHIN REACH, BED LOCKED IN LOWEST POSITION AND AT SEMI-BOYER'S. WILL CONTINUE TO MONITOR CLOSELY
--- NOTE | 2019-07-24 07:30 | NUR ---
BS THIS AM WAS 58, JUICE GIVEN, BS WAS THEN 65, PT A/A/O XS 4. REPEATED JUICE AND PUDDING GIVEN BS AFTER 103.
[2019-07-24] MEDS: BLOOD SUGAR DIAGNOSTIC 1 EACH STRIP IN SCH ×2 (07:33→11:30)
[2019-07-24 08:00] VITALS: BP 149/69
[2019-07-24] MEDS: hydrALAZINE HCL 50 MG TABLET PO SCH ×2 (08:25→12:34)
[2019-07-24] MEDS: ASPIRIN EC 81 MG TABLET.DR PO SCH (08:25)
[2019-07-24] MEDS: FUROSEMIDE 40 MG TABLET PO SCH (08:25)
[2019-07-24] MEDS: DOCUSATE SODIUM 250 MG CAPSULE PO SCH (08:25)
[2019-07-24] MEDS: CARVEDILOL 12.5 MG TABLET PO SCH (08:26)
[2019-07-24] MEDS: PANTOPRAZOLE 40 MG TABLET.DR PO SCH (08:26)
[2019-07-24] MEDS: CEPHALEXIN MONOHYDRATE 500 MG CAPSULE PO SCH (08:26)
[2019-07-24] MEDS: AMIODARONE HCL 200 MG TABLET PO SCH (08:26)
[2019-07-24] MEDS: glyBURIDE 5 MG TABLET PO SCH (08:38)
[2019-07-24] MEDS: APIXABAN 2.5 MG TABLET PO SCH (08:39)
--- NOTE | 2019-07-24 11:00 | NUR ---
RN NOTES REMOVED ODELL CATHETER, PATIENT WAS ABLE TO VOID, NO COMPLAIN OF PAIN OR DISCOMFORT. WILL CONTINUE TO MONITOR.
[2019-07-24] MEDS ORDERED: APIX2.5T PO (12:15)
[2019-07-24] MEDS ORDERED: AMIO200T7 PO (12:15)
[2019-07-24] MEDS ORDERED: HYDR-4077 PO (12:15)
[2019-07-24] MEDS ORDERED: FURO40TA5 PO (12:15)
[2019-07-24] MEDS ORDERED: CEPH500C2 PO (12:15)
[2019-07-24 13:00] VITALS: BP 140/70
--- NOTE | 2019-07-24 13:55 | NUR ---
RN NOTES CALLED [facility] ([facility]), SPOKE TO GREG PITTS PROTECTIVE SIGNAL REPAIRER. REPORT GIVEN REGARDING THE PATIENT.
[2019-07-24] MEDS: SOD FERRIC GLUC 125 MG in IV NS 0.9% 100 ML IV SCH (14:00)
--- NOTE | 2019-07-24 14:15 | NUR ---
REHABILITATOR NOTES PATIENT DISCHARGED IN STABLE CONDITION. A/O X4. ABLE TO MAKE NEEDS KNOWN. V/S TAKEN, STABLE AND RECORDED. PATIENT'S IV REMOVED AND APPLIED PRESSURE DRESSINGS. TOOK PICTURES OF SKIN ISSUES AND FILED ON CHART. ODELL CATHETER REMOVED EARLIER, PATIENT ALREADY VOIDED. NO COMPLAIN OF PAIN OR DISCOMFORT NOTED. NAME ARM BAND REMOVED. ALL BELONGINGS CHECKED AND SIGNED. HEALTH TEACHINGS/DISCHARGED INSTRUCTIONS GIVEN AND VERBALIZED UNDERSTANDING. PATIENT LEFT UNIT WITH 2 AMBULANCE STAFF VIA GURNEY. NO SIGNS OF DISTRESS NOTED. CHARGE NURSE AWARE OF DISCHARGED.
== END 2019-07-24 14:20 | DRG 194 ==
LOC: ER 00:47 → TELE 02:04 → TELE-TD 06:57 → MEDSG1 07-20 10:04
PROVIDERS: ADMIT Registered Nurse; ATTEND Nurse Practitioner Acute Care
DX: I13.0 Hypertensive heart and chronic kidney disease with heart failure and stage 1 through stage 4 chronic kidney disease, or unspecified chronic kidney disease (principal); J96.21 Acute and chronic respiratory failure with hypoxia; I21.A1 Myocardial infarction type 2; N17.9 Acute kidney failure, unspecified; E11.22 Type 2 diabetes mellitus with diabetic chronic kidney disease; D62 Acute posthemorrhagic anemia; E11.319 Type 2 diabetes mellitus with unspecified diabetic retinopathy without macular edema; I50.31 Acute diastolic (congestive) heart failure; I48.91 Unspecified atrial fibrillation; E11.9 Type 2 diabetes mellitus without complications; D64.9 Anemia, unspecified; K21.9 Gastro-esophageal reflux disease without esophagitis; N39.0 Urinary tract infection, site not specified; N18.9 Chronic kidney disease, unspecified; E78.5 Hyperlipidemia, unspecified; E66.9 Obesity, unspecified; G89.29 Other chronic pain; I25.10 Atherosclerotic heart disease of native coronary artery without angina pectoris; Z79.82 Long term (current) use of aspirin; Z79.899 Other long term (current) drug therapy; Z79.84 Long term (current) use of oral hypoglycemic drugs; J44.9 Chronic obstructive pulmonary disease, unspecified; K59.00 Constipation, unspecified; Z99.81 Dependence on supplemental oxygen; Z90.710 Acquired absence of both cervix and uterus; J45.909 Unspecified asthma, uncomplicated; B96.89 Other specified bacterial agents as the cause of diseases classified elsewhere; F32.9 Major depressive disorder, single episode, unspecified; E61.1 Iron deficiency; G47.30 Sleep apnea, unspecified; Z79.01 Long term (current) use of anticoagulants; Z83.3 Family history of diabetes mellitus; Z82.5 Family history of asthma and other chronic lower respiratory diseases; Z82.49 Family history of ischemic heart disease and other diseases of the circulatory system; Z82.0 Family history of epilepsy and other diseases of the nervous system; Z77.22 Contact with and (suspected) exposure to environmental tobacco smoke (acute) (chronic); I70.0 Atherosclerosis of aorta; I48.20 Chronic atrial fibrillation, unspecified; G47.00 Insomnia, unspecified
CPT/HCPCS: 36415; 71045-TC; 76770-TC; 80048-TC; 80053-TC; 80061-TC; 80076-TC; 81000-TC; 82272-TC; 82550-TC; 82570-TC; 82728-TC; 82962-TC; 83540-TC; 83735-TC; 83880; 83970; 84100-TC; 84155; 84155-TC; 84165; 84300-TC; 84439-TC; 84443-TC; 84484-TC; 85025-TC; 87081-TC; 87086-TC; 87186-TC; 93307-TC; 93971-TC; 94799-TC; A9502; G0378; J0282; J1650; J1815; J1940; J2270; J2405; J2543; J2785; J2916; J3475; J3490; J7030; J7060

== ENCOUNTER 2019-08-29 14:59 | Emergency (ER) | payer MEDICARE, OTHER ==
[~2019-08-29] VITALS: Ht 165.1 cm; Wt 84.8 kg
[~2019-08-29 14:59] MED LIST: ACET-73 PO; ALBU8.5H8 IH; AMIO200T7 PO; APIX2.5T PO; ASPI-1152 PO; ASPI1TAB2 PO; ATOR20TA PO; BISA10SU61 RC; CARV25TA2 PO; CEPH500C2 PO; FURO40TA5 PO; GLYB5TAB7 PO; HYDR-4077 PO; INSU100I26 SQ; IPRA3AMP23 IH; ISOS40TA12 PO; MAGN24002 PO; MULT-439 PO; NA P133E RC; PANT40TA4 PO; PROHEAL PO; SENN-168 PO; UMEC1BLS IH
--- NOTE | 2019-08-29 15:14 | NUR ---
[id number], FOUND ALTERED W/ BG 53 AT 2PM. WAS GIVEN GLUCAGON HAND CLERICAL VERIFIER. BG 118 HAND CLERICAL VERIFIER. PT IS C/O DIZZINESS W/ N/V HAND CLERICAL VERIFIER. ALSO C/O HEADACHE. PT FOUND SPITTING UP UPON ENTERING ROOM. APPEARS ANXIOUS. ON MONITOR AND MADE COMFORTABLE. READY FOR EVAL.
[2019-08-29] MEDS ORDERED: METOCLOPRAMIDE HCL 10 MG/2 ML VIAL ONE (15:41)
[2019-08-29] MEDS ORDERED: METOCLOPRAMIDE HCL 10 MG/2 ML VIAL IV ONE (16:00)
[2019-08-29 16:01] LABS: BASOPHILS # (AUTO) 0.1 /CMM (0.0-0.2); BASOPHILS % (AUTO) 0.6 % (0.0-2.0); EOSINOPHILS % (AUTO) 0.5 % (0.0-6.0); HEMATOCRIT 31 % (33-45); HEMOGLOBIN 10.1 g/dL (11.5-14.8); LYMPHOCYTES # (AUTO) 0.8 /CMM (0.8-4.8); LYMPHOCYTES % (AUTO) 7.2 % (20.0-44.0); MEAN CORPUSCULAR HGB CONC 33 g/dl (31.0-36.0); MEAN CORPUSCULAR VOLUME 90 fL (82-100); MONOCYTES # (AUTO) 0.5 /CMM (0.1-1.30); MONOCYTES % (AUTO) 4.7 % (2.0-12.0); NEUTROPHILS # (AUTO) 9.6 /CMM (1.8-8.9); PLATELET COUNT (AUTO) 182 /CMM (150-450)
[2019-08-29 16:09] LABS: CALCIUM, SERUM 8.4 mg/dL (8.5-10.1); CARBON DIOXIDE 30 mmol/L (21-32); CHLORIDE 101 mmol/L (98-107); CREATININE 1.5 mg/dL (0.6-1.3); GLUCOSE 193 mg/dL (74-106); POTASSIUM 4.3 mmol/L (3.5-5.1); SODIUM SERUM 138 mmol/L (136-145); UREA NITROGEN, BLOOD 28 mg/dL (7-18)
[2019-08-29] MEDS ORDERED: ACETAMINOPHEN 650 MG/20.3 ML UDC ONE (16:13)
[2019-08-29] MEDS ORDERED: AMIN30LI2 PO (16:14)
[2019-08-29] MEDS ORDERED: TIOT18CA3 IH (16:14)
[2019-08-29] MEDS ORDERED: INSU100V7 SQ (16:14)
[2019-08-29] MEDS ORDERED: BUDE10.2 IH (16:14)
[2019-08-29] MEDS ORDERED: TRAM50TA2 PO (16:14)
[2019-08-29 16:16] LABS: ALANINE AMINOTRANSFERASE 18 U/L (12-78); ALKALINE PHOSPHATASE 58 U/L (46-116); ASPARTATE AMINOTRANSFERASE 23 U/L (15-37); BILIRUBIN,TOTAL 0.2 mg/dL (0.2-1.0); LIPASE 105 U/L (73-393)
--- NOTE | 2019-08-29 16:19 | NUR ---
PLACED PT ON BEDPAN FOR URINE COLLECTION
[2019-08-29] MEDS ORDERED: ACETAMINOPHEN 650 MG/20.3 ML UDC PO ONE (16:30)
--- NOTE | 2019-08-29 16:36 | NUR ---
URINE SENT TO STAT LAB
[2019-08-29 16:42] LABS: APPEARANCE,URINE Slightly Cloudy (CLEAR); BILIRUBIN,URINE Negative (NEGATIVE); BLOOD, URINE Negative Ery/uL (NEGATIVE); COLOR,URINE Yellow (YELLOW); KETONES,URINE Negative (NEGATIVE); LEUKOCYTE ESTERASE ,URINE Negative (NEGATIVE); NITRITE, URINE Negative (NEGATIVE); PH,URINE 5.5 (5.0-8.0); PROTEIN,URINE >=300 mg/dl (NEGATIVE); UGLUCOSE Negative (NEGATIVE); UROBILINOGEN,URINE 0.2 EU/dL (0.2)
--- NOTE | 2019-08-29 17:03 | NUR ---
CHANGED PT DIAPER WITH [facility]SE[facility] BAUER
--- NOTE | 2019-08-29 18:38 | NUR ---
CALLED [facility] ETA IS 1944. TRIP NUMBER [id number]
--- NOTE | 2019-08-29 18:46 | NUR ---
PT REQUESTS MEDICATION TO HELP SLEEP. AWARE
--- NOTE | 2019-08-29 19:40 | NUR ---
REPORT GIVEN TO [facility] EMT UNIT #[id number]
--- NOTE | 2019-08-29 19:48 | NUR ---
IV removed. Catheter intact and site benign. Pressure and 4x4 applied to site. No bleeding noted.Patient discharged to home in stable condition. Written and verbal after care instructions given. Patient verbalizes understanding of instruction.
[2019-08-29 19:50] VITALS: BP 168/74
== END 2019-08-29 19:51 ==
LOC: ER 15:02
DX: B34.8 Other viral infections of unspecified site (principal); R11.2 Nausea with vomiting, unspecified; J44.9 Chronic obstructive pulmonary disease, unspecified; I11.0 Hypertensive heart disease with heart failure; I50.9 Heart failure, unspecified; E11.9 Type 2 diabetes mellitus without complications; I48.91 Unspecified atrial fibrillation; K21.9 Gastro-esophageal reflux disease without esophagitis; Z79.4 Long term (current) use of insulin; Z79.899 Other long term (current) drug therapy; Z79.82 Long term (current) use of aspirin
CPT/HCPCS: 36415; 71045; 80048; 80076; 81001; 82962 ×2; 83690; 83880; 84484; 85025; 93005; 96374; 99284; J2765; 81000-TC